=== PATIENT | male | born 1955 | race Two or more races ===

== ENCOUNTER 2018-02-02 00:50 | Emergency (ER) | payer MEDICAID | END 2018-02-02 02:36 | disposition home or self-care (01) | LOC: D.ER 00:50 | DX: S60.221A Contusion of right hand, initial encounter (principal); S70.01XA Contusion of right hip, initial encounter; S40.012A Contusion of left shoulder, initial encounter; W01.0XXA Fall on same level from slipping, tripping and stumbling without subsequent striking against object, initial encounter; Y93.89 Activity, other specified; Y92.019 Unspecified place in single-family (private) house as the place of occurrence of the external cause; F17.200 Nicotine dependence, unspecified, uncomplicated ==